=== PATIENT | female | born 1960 | race Caucasian/White ===

== ENCOUNTER 2020-06-04 08:18 | Day surgery (SDC) | payer OTHER ==
[2020-05-31 11:31] VITALS: BMI 33.2
[2020-06-04] MEDS ORDERED: LIDOCAINE HCL/PF 2% SDV 5ML VIAL ONE (09:08)
[2020-06-04] MEDS ORDERED: PROPOFOL 20 ML ONE ×2 (09:08)
[2020-06-04 10:22] VITALS: BP 132/80; PULSE 81; TEMP 97.9
== END 2020-06-04 10:22 | disposition home or self-care (01) ==
LOC: FASU-ENDO 08:18
PROVIDERS: ATTEND Internal Medicine Gastroenterology
PROC: 0DBN8ZX Excision of Sigmoid Colon, Via Natural or Artificial Opening Endoscopic, Diagnostic (ICD-10-PCS; 2020-06-04)
PROC: 0DBM8ZX Excision of Descending Colon, Via Natural or Artificial Opening Endoscopic, Diagnostic (ICD-10-PCS; principal; 2020-06-04 09:09)
DX: Z12.11 Encounter for screening for malignant neoplasm of colon (principal); D12.4 Benign neoplasm of descending colon; D12.5 Benign neoplasm of sigmoid colon; Z80.0 Family history of malignant neoplasm of digestive organs; Z83.71 Family history of colonic polyps; K64.8 Other hemorrhoids
CPT/HCPCS: 88305-TC